=== PATIENT | male | born 1990 | race Caucasian/White ===

== ENCOUNTER 2018-08-14 09:22 | Emergency (ER) | payer BC ==
[2018-08-14 09:42] VITALS: BP 111/66
--- NOTE | 2018-08-14 10:31 | UC ---
Skin Complaint HPI - HPI Summary HPI Summary: 28 yo male about 2 weeks s/p tick bite to right upper thigh has remained red since then about 4 days ago devloped a cluster of small pustules around bite site now expanding rash no fever - History of Current Complaint Chief Complaint: [facility]CS[facility] Time Seen by Provider: 08/14/18 10:17 Stated Complaint: TICK BITE Hx Obtained From: Patient Skin Exposure Onset/Duration: Weeks Ago Timing: Constant Onset Severity: Mild Current Severity: Moderate Pain Intensity: 3 Pain Scale Used: 0-10 Numeric Location: Other - right upper thigh Character: Swelling, Pruritus, Redness, Painful Aggravating Factor(s): Touch Associated Signs & Symptoms: Positive: Rash - Allergy/Home Medications Allergies/Adverse Reactions: Allergies Allergy/AdvReac Type Severity Reaction Status Date / Time No Known Allergies Allergy Verified 08/14/18 09:42 PMH/Surg Hx/FS Hx/Imm Hx Previously Healthy: Yes - Surgical History Surgical History: Yes Surgery Procedure, Year, and Place: T&A. wisdom teeth - Family History Known Family History: Positive: Hypertension - Social History Alcohol Use: Occasionally Substance Use Type: None Smoking Status (MU): Never Smoked Tobacco Review of Systems All Other Systems Reviewed And Are Negative: Yes Constitutional: Positive: Negative Skin: Positive: Rash Eyes: Positive: Negative ENT: Positive: Negative Respiratory: Positive: Negative Cardiovascular: Positive: Negative Gastrointestinal: Positive: Negative Genitourinary: Positive: Negative Motor: Positive: Negative Neurovascular: Positive: Negative Musculoskeletal: Positive: Negative Neurological: Positive: Negative Psychological: Positive: Negative Physical Exam Triage Information Reviewed: Yes Appearance: Well-Appearing, No Pain Distress, Well-Nourished Vital Signs: Initial Vital Signs Temp 98.9 F 08/14/18 09:39 Pulse 57 08/14/18 09:39 Resp 18 08/14/18 09:39 BP 111/66 08/14/18 09:39 Pulse Ox 98 08/14/18 09:39 Vital Signs Reviewed: Yes Eyes: Positive: Conjunctiva Clear ENT: Positive: Hearing grossly normal. Negative: Nasal congestion, Nasal drainage, Trismus, Muffled voice, Hoarse voice Neck: Positive: Supple, Nontender, No Lymphadenopathy Respiratory: Positive: Lungs clear, Normal breath sounds, No respiratory distress Cardiovascular: Positive: RRR, No Murmur, Pulses Normal Musculoskeletal: Positive: ROM Intact, No Edema Neurological: Positive: Alert Psychological Exam: Normal Skin: Positive: Other - see image Images Front/Back of Body, Lg ([place]): 1 - 1x2 cm culture of small pustules surrounding by 3x3 cm area of redness and induration (no fluctuance) surrounded by 5x8 cm of pinkness Course/Dx - Diagnoses Provider Diagnosis: Cellulitis of right thigh Discharge - Sign-Out/Discharge Documenting (check all that apply): Patient Departure All imaging exams completed and their final reports reviewed: No Studies - Discharge Plan Condition: Stable Disposition: HOME Prescriptions: DOXYcycline CAP(*) [DOXYcycline 100MG CAP(*)] 100 mg PO BID #28 cap Patient Education Materials: Cellulitis (ED) Referrals: No Primary Care Phys,NOPCP [Primary Care Provider] - Additional Instructions: The antibiotic given will cover you for Lyme Disease and cellulitis If you form an abscess (boil) you need to get rechecked recheck in 4-5 days if not improved - Billing Disposition and Condition Condition: STABLE Disposition: Home
== END 2018-08-14 10:34 | disposition home or self-care (01) ==
LOC: UCEAST 09:22
DX: L03.115 Cellulitis of right lower limb (principal)
CPT/HCPCS: 99202; G0463